=== PATIENT | female | born 1990 | race Caucasian/White ===

== ENCOUNTER 2016-09-03 11:48 | Emergency (ER) | payer OTHER | END 2016-09-03 13:03 | disposition home or self-care (01) | LOC: ER 11:48 | DX: M94.0 Chondrocostal junction syndrome [Tietze] (principal); J06.9 Acute upper respiratory infection, unspecified; J04.0 Acute laryngitis; M54.9 Dorsalgia, unspecified; F17.210 Nicotine dependence, cigarettes, uncomplicated | CPT/HCPCS: 96372; J1885 ==